=== PATIENT | female | born 2000 | race Caucasian/White ===

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

== ENCOUNTER 2019-12-05 | Emergency (ER) | payer SELFPAY ==
[~2019-12-05] MED LIST changes: +DICLOXACILL500 MG PO
[2019-12-05] MEDS ORDERED: PRENATAL1 TA1 PO (12:58)
[2019-12-05 13:23] LABS: HEMATOCRIT 39.5 % (37.0-47.0); IMMATURE GRANULOCYTES 0.4 % (0.0-5.0); MEAN CORPUSCULAR HGB 31.9 pG CALC (26.0-32.0); MEAN CORPUSCULAR HGB CONC 35.4 g/dL CAL (32.0-36.0); NEUT# 5.03 thou/uL (2.00-7.15); RED BLOOD COUNT 4.39 mill/uL (4.20-5.60); RED CELL DISTRI WIDTH 12.3 % (11.5-15.5)
[2019-12-05 13:44] LABS: ALBUMIN 4.8 g/dL (3.2-5.0); ALKALINE PHOSPHATASE 56 u/l (38-126); ANION GAP 16 (6-22 (CALC)); BILIRUBIN, TOTAL 0.9 mg/dL (0.0-1.4); BUN 7 mg/dL (7-17); BUN/CREATININE RATIO 12 (12-20 (CALC)); CARBON DIOXIDE 18 mmol/l (22-30); CHLORIDE 106 mmol/l (95-108); CREATININE 0.6 mg/dL (0.5-1.0); GFR > 60 ML/MIN (>=60 (CALC)); GFR FOR AFR.AMER. > 60 ML/MIN (>=60 (CALC)); LIPASE 54 u/l (23-300); POTASSIUM 3.9 mmol/l (3.5-5.1); SGOT/AST 26 u/l (14-36); SODIUM 135 mmol/l (137-146); TOTAL PROTEIN 7.7 g/dL (6.3-8.2)
[2019-12-05 14:26] LABS: BETA-HCG, QUANT(RESULT NUMBER) 59203 mIU/mL
[2019-12-05 15:30] LABS: URINE BILIRUBIN - DIPSTICK NEGATIVE (NEGATIVE); URINE BLOOD DIPSTICK NEGATIVE (NEGATIVE); URINE COLOR YELLOW; URINE GLUCOSE - DIPSTICK NEGATIVE (NEGATIVE); URINE KETONE >=80 mg/dL (NEGATIVE); URINE LEUK ESTERASE NEGATIVE (NEGATIVE); URINE NITRITE - DIPSTICK NEGATIVE (Negative); URINE PROTEIN - DIPSTICK NEGATIVE (NEG-TRACE); URINE SPECIFIC GRAVITY 1.025
[2019-12-05] MEDS ORDERED: PHENERGAN25 MG/TAB PO (16:16)
== END 2019-12-05 16:38 | disposition home or self-care (01) | DRG 833 ==
PROVIDERS: Family Medicine
DX: O21.9 Vomiting of pregnancy, unspecified (principal); Z3A.01 Less than 8 weeks gestation of pregnancy

== ENCOUNTER 2020-02-25 11:33 | Emergency (ER) | payer OTHER ==
[~2020-02-25] VITALS: Ht 167.6 cm; Wt 67.2 kg
[~2020-02-25 11:33] MED LIST changes: +PHENERGAN25 MG/TAB PO; +PRENATAL1 TA1 PO
[2020-02-25] MEDS ORDERED: PERMETHRIN5 % EX (11:50)
[2020-02-25] MEDS ORDERED: BENADRYL25 M1 PO (11:57)
[2020-02-25 12:05] VITALS: BP 112/62
== END 2020-02-25 12:05 | disposition home or self-care (01) ==
LOC: ED 11:33
DX: O98.812 Other maternal infectious and parasitic diseases complicating pregnancy, second trimester (principal); B86 Scabies; Z3A.18 18 weeks gestation of pregnancy